=== PATIENT | female | born 1965 | race Two or more races ===

== ENCOUNTER 2017-11-09 13:32 | Emergency (ER) | payer SELFPAY ==
[~2017-11-09] VITALS: Ht 160 cm; Wt 81.8 kg
[2017-11-09 13:38] VITALS: Ht 160 cm; Wt 81.8 kg
[2017-11-09] MEDS ORDERED: LISINOPRIL10 MG (13:39)
[2017-11-09] MEDS ORDERED: COREG6.25 MG (13:39)
[2017-11-09] MEDS ORDERED: LIPITOR10 MG PO (13:39)
[2017-11-09] MEDS ORDERED: FOLIC ACID1 MG (13:39)
[2017-11-09 14:15] LABS: APPEARANCE HAZY (CLEAR); BILIRUBIN NEGATIVE (NEGATIVE); COLOR PINK (YELLOW); GLUCOSE NEGATIVE (NEGATIVE); KETONE NEGATIVE (NEGATIVE); NITRITE NEGATIVE (NEGATIVE); PROTEIN NEGATIVE (NEGATIVE); UROBILINOGEN NORMAL (NORMAL)
[2017-11-09 14:16] LABS: BACTERIA NONE SEEN /hpf (NONE SEEN); EPITHELIAL CELLS 0-5 /hpf (0-5); WHITE CELLS - URINE 0-5 /hpf (0-5)
[2017-11-09 14:37] LABS: BASOPHILS 0.1 % (0-2); EOSINOPHILS 0.8 % (0-7); HEMATOCRIT 39.7 % (36.0-48.0); HEMOGLOBIN 13.6 g/dL (12-16); IMMATURE GRANULOCYTES 0.1 % (0-5); LYMPHOCYTES 24.4 % (15-50); MCH 31.3 pg (26.0-34.0); MCHC 34.3 g/dL (31.0-37.0); MCV 91.3 fL (80.0-100.0); MEAN PLATELET VOLUME 11.6 fL (7.4-10.4); MONOCYTES 6.3 % (2-11); NEUTROPHILS 68.3 % (40-80); PLATELET COUNT 208 10x3/uL (130-400); RBC 4.35 10x6/uL (4.00-5.40); RDW 12.8 % (11.5-14.5); WBC 7.1 10x3/uL (4.8-10.8)
[2017-11-09 16:47] VITALS: BP 126/78
[2017-11-12 22:07] LABS: CHLAMYDIA TRACHOMATIS, NAA Negative (Negative)
== END 2017-11-09 16:48 | disposition home or self-care (01) ==
LOC: D.ER 13:32
PROVIDERS: Emergency Medicine
DX: N83.202 Unspecified ovarian cyst, left side (principal); N83.201 Unspecified ovarian cyst, right side; D25.9 Leiomyoma of uterus, unspecified; I10 Essential (primary) hypertension; I42.9 Cardiomyopathy, unspecified